=== PATIENT | female | born 1955 | race Hispanic/Latino ===

== ENCOUNTER → 2023-05-26 | Outpatient (REF) | payer MEDICARE | LOC: RAD 10:32 | PROVIDERS: ATTEND Nurse Practitioner Gerontology | DX: M25.561 Pain in right knee (principal) ==

== ENCOUNTER 2023-12-01 16:12 | Outpatient (RCR) | payer MEDICARE | END 2023-12-08 | LOC: PT 16:12 | PROVIDERS: ATTEND Specialist | DX: M17.0 Bilateral primary osteoarthritis of knee (principal) ==